=== PATIENT | female | born 1955 | race Caucasian/White ===

== ENCOUNTER 2024-07-15 15:55 | Emergency (ER) | payer MEDICARE, OTHER, SELFPAY ==
--- NOTE | 2024-07-15 16:03 | ECG_ITS ---
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
[2024-07-15 16:04] VITALS: BP 128/88; PULSE 90; TEMP 36.7; O2SAT 100; BMI 19.1
--- NOTE | 2024-07-15 16:05 | CT_ITS ---
[address] [address] Patient Name: CAIN COELLO MRN: [id number] date: 1955 Sex: F Assigned Patient Location: ER Current Patient Location: ER Accession/Order Number: [id number] Exam Date: 07/15/2024 16:21 Report Date: 07/15/2024 17:41 At the request of: GUMARO STANLEY Procedure: CT abdomen pelvis wo con EXAM: CT abdomen pelvis wo con HISTORY: left flank pain stone protocol COMPARISON: CT scan 12/10/2014. TECHNIQUE: CT abdomen pelvis without contrast. Axial scans with reformatted coronal sagittal images. Individualized radiation dose reduction used for this exam. FINDINGS: Lower chest: Lung bases clear, no acute process lower chest. ABDOMEN: Kidneys/urinary tract: Punctate left renal calcic case lower pole other smaller calculi seen previously not well visualized. No definite hydronephrosis ureteral calculus. No perirenal fluid or stranding. Right kidney ureter unremarkable. Fluid-filled bladder with a 2.5 mCi case along the posterior right bladder wall new from previous. Could be a calcification passed from either ureter. Pelvic ureters are unremarkable. Noncontrast liver, adrenal glands, pancreas, spleen unremarkable. No ascites or free fluid. No adenopathy. Normal size aorta. Normal-appearing fluid-filled gallbladder. Graft no bowel dilatation ileus or obstruction. Moderate to large amount gas and stool throughout colon. Appendix not clearly visualized but no pericecal fluid or inflammation. Pelvis: No mass or adenopathy or free fluid. Calcification along the posterior right bladder wall not seen previously. MUSCULOSKELETAL: No suspicious bone lesion. Degenerative changes. IMPRESSION: 1. No definite left ureteral calculus or hydronephrosis. Punctate calculus lower pole left kidney others possible small calculi. Right kidney ureter unremarkable. 2. Calcification along the posterior right bladder wall could reflect a recently passed calculus. This is new from previous. 3. No acute process elsewhere lower chest abdomen or pelvis. Electronically authenticated by: JUAN ORTIZ Date: 07/15/2024 17:41
--- NOTE | 2024-07-15 16:05 | ED_ITS ---
HPI HPI - General Adult General Chief complaint: Urogenital-Female Stated complaint: abd pain Time Seen by Provider: 07/15/24 15:56 History of Present Illness HPI narrative: 68-year-old female remote history of breast cancer presents to the ER with concerns of abrupt onset left flank pain. Patient reports moderate to severe pain in the left flank radiating to her lower abdomen. She reports a past history of kidney stones and previously saw urology at [facility] many years ago. She has not had a kidney stone in some time. Patient notes nausea, sharp pain. Denies fevers or chills. Patient states she was working in her yard raking leaves when symptoms came on shortly after using the restroom. She denies dysuria. Patient appears uncomfortable holding the left flank. Location: Reports abdomen Radiation: Reports back and abdomen Quality: Reports aching and sharp Pain Consistency: Reports constant Associated symptoms: Denies rash Related Data Home Medications ?Medication ?Instructions ?Recorded ?Confirmed amitriptyline/baclofen/gabappentin 07/15/24 lidocaine cetirizine 10 mg tablet (24Hour 10 mg PO DAILY PRN allergy symptoms 07/15/24 07/15/24 Allergy) cholecalciferol (vit D3) 137.5 mcg 1 tab PO DAILY 07/15/24 07/15/24 (5,500 unit)-vit K2 200 mcg tablet losartan 50 mg tablet mg 07/15/24 tamoxifen 10 mg tablet mg 07/15/24 timolol maleate 0.5 % eye drops drp ophthalmic (eye) 07/15/24 triamcinolone acetonide 55 mcg 1 spray intranasal DAILY 07/15/24 07/15/24 nasal spray aerosol (24 Hour Nasal Allergy) zoledronic acid 5 mg/100 mL in ea IV .yearly 07/15/24 mannitol 5 %-water intravenous piggybck (Reclast) Previous Rx's ?Medication ?Instructions ?Recorded cephalexin 500 mg capsule 500 mg PO BID 5 days #10 caps 07/15/24 ibuprofen 600 mg tablet 600 mg PO TID PRN pain #30 tabs 07/15/24 ondansetron HCl 4 mg tablet 4 mg PO Q6H PRN nausea and 07/15/24 vomiting #12 tabs tamsulosin 0.4 mg capsule (Flomax) 0.4 mg PO DAILY #5 caps 07/15/24 Allergies Allergy/AdvReac Type Severity Reaction Status Date / Time acetaminophen (From Ultracet) Allergy Nausea Verified 07/15/24 16:04 amlodipine Allergy swelling Verified 07/15/24 16:04 hydromorphone (From Dilaudid) Allergy Vomiting Verified 07/15/24 16:04 nabumetone Allergy Hives Verified 07/15/24 16:04 tramadol (From Ultracet) Allergy Nausea Verified 07/15/24 16:04 lisinopril AdvReac edema Verified 07/15/24 16:04 tylenol with codeine Allergy Hives Uncoded 07/15/24 16:04 Opioid HPI Opioid Management Most Recent Opioid Data: Last Pain Scale 10 07/15/24 16:30 07/15/24 Last ED Pain Assessment 07/15/24 17:10 Last MAR Pain Assessment 07/15/24 16:30 Review of Systems ROS Constitutional Denies: fever or chills Eyes Denies: change in vision Ears, nose, mouth, and throat Denies: throat pain or neck pain Cardiovascular Denies: chest pain or palpitations Respiratory Denies: shortness of breath Gastrointestinal Reports: abdominal pain (left flankl), nausea and vomiting; Denies: diarrhea PFSH PFSH Social History Little interest or pleasure in doing things: not at all Feeling down, depressed, or hopeless: not at all Exam Narrative Exam Narrative: Nurses notes and vital signs reviewed and patient is not hypoxic. General: The patient appears well, but Moderate discomfort left flank pain. Skin: Warm, dry, no pallor noted. no evidence of rash. Head: Normocephalic, atraumatic Neck: Supple, trachea mid-line, no tenderness, no lymphadenopathy Eye: Pupils are equal, round and reactive to light, EOMI Ears, Nose, Mouth, and Throat: external exam unremarkable Cardiovascular: Regular Rate and Rhythm Respiratory: Patient is in no distress, no accessory muscle use, lungs are clear to auscultation, no wheezing, rales or rhonchi. Chest Wall: no tenderness Back: non-tender,mild left CVA tenderness Musculoskeletal: normal ROM, no tenderness, no swelling GI: Normal bowel sounds, no tenderness to palpation, no masses appreciated. No rebound, guarding, or rigidity noted. Neurological: A&O x4 Psychiatric: Cooperative Constitutional Vital Signs, click to edit/add: Last Vital Signs Temp 98.1 F 07/15/24 16:04 Pulse 84 07/15/24 17:32 Resp 18 07/15/24 16:04 BP 129/65 07/15/24 17:32 Pulse Ox 98 07/15/24 17:32 O2 Del Method Room Air 07/15/24 16:04 Course Vital Signs Vital signs: Vital Signs Temperature 98.1 F 07/15/24 16:04 Pulse Rate 90 07/15/24 16:04 Respiratory Rate 18 07/15/24 16:04 Blood Pressure 128/88 07/15/24 16:04 Pulse Oximetry 100 07/15/24 16:04 Oxygen Delivery Method Room Air 07/15/24 16:04 Temperature 98.1 F 07/15/24 16:04 Pulse Rate 84 07/15/24 17:32 Respiratory Rate 18 07/15/24 16:04 Blood Pressure 129/65 07/15/24 17:32 Pulse Oximetry 98 07/15/24 17:32 Oxygen Delivery Method Room Air 07/15/24 16:04 Medical Decision Making [facility] Narrative Medical decision making narrative: Patient presents with acute onset left flank pain remote history of kidney stones. Initially medicated with Zofran and Toradol. Patient noted system pain, given 2 mg IV morphine. Patient reported feeling much more comfortable. She declined the need for additional pain medication. We discussed her CT results showing a punctate stone in the left kidney and possible calcification posterior bladder wall, shortly after this she did provide her urine sample and a suspected callus was noted in the sample. Given it has been quite some years since her previous kidney stones Stone analysis. Patient would like to follow- up with local urology, she is given providers in the area. We discussed medication including Zofran and Motrin. She will be sent home with 2 Fox but we suspect that her stone has passed, she is aware that she still has 1 that is small and that her kidney. Urinalysis concerning for infection, will treat with Keflex pending urine culture The patient is to followup with primary care physician in next 2-3 days or to return to the emergency department should any of the signs or symptoms worsen or new symptoms develop. Patient had questions answered. The patient agrees with the following Diagnosis and Treatment plan and the patient will be discharged home. Lab Data Lab results reviewed: Yes I reviewed the patient's lab results Labs: Lab Results 07/15/24 07/15/24 Range/Units 16:10 17:45 WBC 5.8 (4.0-11.0) 10^3/uL RBC 3.69 L (4.20-5.40) 10^6/uL Hgb 12.3 (12.0-16.0) g/dL Hct 36.3 (36.0-48.0) % MCV 98.4 (81.0-99.0) fL MCH 33.3 (26.7-34.0) pg MCHC 33.9 (29.9-35.2) g/dL RDW 14.4 (11.0-15.0) % Plt Count 172 (150-450) 10^3/uL MPV 10.4 (9.5-13.5) fL Neut % (Auto) 43.7 (43.0-75.0) % Lymph % (Auto) 49.6 (20.5-60.0) % [place] % (Auto) 5.7 (1.7-12.0) % Eos % (Auto) 0.3 L (0.9-7.0) % Baso % (Auto) 0.5 (0.2-2.0) % Neut # (Auto) 2.6 (1.4-6.5) 10^3/uL Lymph # (Auto) 2.9 (1.2-3.8) 10^3/uL [place] # (Auto) 0.3 (0.3-0.8) 10^3/uL Eos # (Auto) 0.0 (0.0-0.7) 10^3/uL Baso # (Auto) 0.0 (0.0-0.1) 10^3/uL Abs Immat Gran (auto) 0.01 (0.00-0.03) 10^3/uL Imm/Tot Granulo (auto) 0.2 (0.0-0.5) % Sodium 141 (136-145) mmol/L Potassium 4.0 (3.5-5.1) mmol/L Chloride 104 (98-107) mmol/L Carbon Dioxide 24.4 (21.0-32.0) mmol/L Anion Gap 16.6 BUN 16.0 (7.0-18.0) mg/dL Creatinine 0.81 (0.55-1.02) mg/dL Est GFR ( Amer) >60 (>=60 mL/min/1.73m^2) Est GFR (Non-Af Amer) >60 (>=60 mL/min/1.73m^2) BUN/Creatinine Ratio 19.8 Glucose 104 (74-106) mg/dL Calcium 9.3 (8.5-10.1) mg/dL Total Bilirubin 0.4 (0.2-1.0) mg/dL AST 32 (15-37) U/L ALT 28 (14-59) U/L Alkaline Phosphatase 64 (46-116) U/L Troponin I High Sens 6.5 (4.0-51.3) pg/mL Total Protein 6.7 (6.4-8.2) g/dL Albumin 3.3 L (3.4-5.0) g/dL Globulin 3.4 g/dL Albumin/Globulin Ratio 1.0 Lipase 76.0 (16.0-77.0) U/L Urine Color Lt. yellow (YELLOW) Urine Clarity Clear (CLEAR) Urine pH 8.5 (5.0-9.0) Ur Specific [place] 1.015 (1.005-1.025) Urine Protein Negative (NEG/TRACE) mg/dL Urine Glucose (UA) Negative (NEGATIVE) mg/dL Urine Ketones Trace A (NEGATIVE) mg/dL Urine Occult Blood Negative (NEGATIVE) Urine Nitrite Negative (NEGATIVE) Urine Bilirubin Negative (NEGATIVE) Urine Urobilinogen 0.2 (0.2-1.0) EU/dL Ur Leukocyte Esterase Small A (NEGATIVE) Urine RBC 0-2 (0-2) #/HPF Urine WBC 5-10 A (NONE SEEN) #/HPF Ur Squamous Epith Cells Few A (NONE/RARE) #/LPF Urine Crystals None seen (None Seen) #/HPF Urine Bacteria Large A (NONE SEEN) #/HPF Urine Casts None seen (NONE SEEN) #/LPF Urine Mucus Trace A (NONE SEEN) Ur Culture Indicated? Yes ECG Data Attestation: I personally reviewed and interpreted this ECG as follows: Interpretation: EKG interpretation: Emergency Department physician interpretation, normal sinus rhythm 80 , no ectopy, no ST segment elevation, normal axis. Discharge Plan Discharge Chief Complaint: Urogenital-Female Clinical Impression: Kidney stone on left side, Acute left flank pain, Urinary tract infection Patient Disposition: Home, Self-Care Condition: Good Prescriptions / Home Meds: New ondansetron HCl 4 mg tablet 4 mg PO Q6H PRN (Reason: nausea and vomiting) Qty: 12 0RF ibuprofen 600 mg tablet 600 mg PO TID PRN (Reason: pain) Qty: 30 0RF tamsulosin [Flomax] 0.4 mg capsule 0.4 mg PO DAILY Qty: 5 0RF cephalexin 500 mg capsule 500 mg PO BID 5 Days Qty: 10 0RF No Action losartan 50 mg tablet tamoxifen 10 mg tablet timolol maleate 0.5 % drops OPHTHALMIC (EYE) zoledronic [id number] [Reclast] 5 mg/100 mL piggyback IV .yearly cetirizine [24Hour Allergy] 10 mg tablet 10 mg PO DAILY PRN (Reason: allergy symptoms) triamcinolone acetonide [24 Hour Nasal Allergy] 55 mcg aerosol,spray 1 spray intranasal DAILY Rx Instructions: administer into each nostril vitamin D3-vitamin K2 137.5-200 mcg tablet 1 tab PO DAILY amitriptyline/baclofen/gabappentin lidocaine cream Print Language: Martiniquais Instructions: Kidney Stones (ED), Flank Pain (ED) Additional Instructions: return to ER if symptoms worsen or new symptoms develop. drink plenty of fluids. ( stone analysis pending, can review with PCP/ Urology) Referrals: VIOLET GRAY [Primary Care Provider] - 1 week Harinder Carolina MD [Physician] - 1 week Sobeida Orozco MD [Physician] - As needed
[2024-07-15] MEDS: TAMSULOSIN HCL 0.4 MG CAPSULE PO (16:15)
[2024-07-15] MEDS: ONDANSETRON 4 MG RAPDIS TABLET PO (16:15)
[2024-07-15] MEDS: KETOROLAC TROMETHAMINE 30 MG/ML VIAL IVP (16:16)
[2024-07-15 16:24] LABS: Basophils Percent Auto 0.5 % (0.2-2.0); Eosinophils Percent Auto 0.3 % (0.9-7.0); Hematocrit 36.3 % (36.0-48.0); Hemoglobin 12.3 g/dL (12.0-16.0); Immature Granulocytes Abs Auto 0.01 10^3/uL (0.00-0.03); Immature Granulocytes Pct Auto 0.2 % (0.0-0.5); Lymphocytes Absolute Auto 2.9 10^3/uL (1.2-3.8); Lymphocytes Percent Auto 49.6 % (20.5-60.0); Mean Corpuscular HGB Conc 33.9 g/dL (29.9-35.2); Mean Corpuscular Hemoglobin 33.3 pg (26.7-34.0); Mean Corpuscular Volume 98.4 fL (81.0-99.0); Mean Platelet Volume 10.4 fL (9.5-13.5); Monocytes Absolute Auto 0.3 10^3/uL (0.3-0.8); Monocytes Percent Auto 5.7 % (1.7-12.0); Neutrophils Absolute Auto 2.6 10^3/uL (1.4-6.5); Neutrophils Percent Auto 43.7 % (43.0-75.0); Platelet Count 172 10^3/uL (150-450); Red Blood Count 3.69 10^6/uL (4.20-5.40); Red Cell Distribution Width 14.4 % (11.0-15.0); White Blood Count 5.8 10^3/uL (4.0-11.0)
[2024-07-15] MEDS: MORPHINE SULFATE 2 MG/ML SYRINGE IV (16:30)
[2024-07-15 16:38] LABS: Anion Gap 16.6
[2024-07-15 16:41] LABS: Alanine Aminotransferase 28 U/L (14-59); Albumin Level 3.3 g/dL (3.4-5.0); Alkaline Phosphatase 64 U/L (46-116); Aspartate Amino Transferase 32 U/L (15-37); BUN Creatinine Ratio 19.8; Bilirubin Total 0.4 mg/dL (0.2-1.0); Calcium 9.3 mg/dL (8.5-10.1); Carbon Dioxide 24.4 mmol/L (21.0-32.0); Chloride 104 mmol/L (98-107); Estimated GFR (African America >60 (>=60 mL/min/1.73m^2); Estimated GFR (Non-African Ame >60 (>=60 mL/min/1.73m^2); Globulin 3.4 g/dL; Glucose 104 mg/dL (74-106); Sodium 141 mmol/L (136-145); Total Protein 6.7 g/dL (6.4-8.2); Troponin I High Sensitivity 6.5 pg/mL (4.0-51.3)
[2024-07-15 17:32] VITALS: BP 129/65; PULSE 84; O2SAT 98
[2024-07-15] MEDS: HYDROCODONE/ACET 5-325 MG TABLET 2 TAB PO (18:09)
[2024-07-15 18:10] LABS: Bilirubin Urine NEGATIVE (NEGATIVE); Blood Urine NEGATIVE (NEGATIVE); Clarity Urine CLEAR (CLEAR); Color Urine LT. YELLOW (YELLOW); Glucose Urine UA NEGATIVE (NEGATIVE); Ketones Urine TRACE mg/dL (NEGATIVE); Leukocyte Esterase Urine SMALL (NEGATIVE); Nitrite Urine NEGATIVE (NEGATIVE); Protein Urine NEGATIVE (NEG/TRACE); Specific Gravity Urine 1.015 (1.005-1.025); Urobilinogen Urine 0.2 EU/dL (0.2-1.0); pH Urine 8.5 (5.0-9.0)
[2024-07-15] MEDS: ONDANSETRON 4 MG RAPDIS TABLET SL (18:10)
[2024-07-15 18:12] LABS: Urine Microscopic Indicated YES
[2024-07-15 18:26] LABS: Bacteria Urine LARGE #/HPF (NONE SEEN); Cast Seen? NONE SEEN #/LPF (NONE SEEN); Crystals Seen? None Seen #/HPF (None Seen); Mucus Urine TRACE (NONE SEEN); RBC Urine 0-2 #/HPF (0-2); Squamous Epithelial Cell Urine FEW #/LPF (NONE/RARE); Urine Culture Indicated YES
[2024-07-15] MEDS: PROMETHAZINE HCL 12.5 MG in 0.9 % SODIUM CHLORIDE 50 ML 202 MG IV (18:50)
[2024-07-15] MEDS: CEPHALEXIN 500 MG CAPSULE PO (19:42)
[2024-07-15 19:55] VITALS: BP 90/38; PULSE 94; O2SAT 100
== END 2024-07-15 19:58 | disposition home or self-care (01) ==
PROVIDERS: Personal Emergency Response Attendant; Emergency Provider Emergency Medicine; PCP Family Medicine
DX: N20.0 Calculus of kidney (principal); N39.0 Urinary tract infection, site not specified; R10.9 Unspecified abdominal pain; Z85.3 Personal history of malignant neoplasm of breast; Z87.442 Personal history of urinary calculi
CPT/HCPCS: 36415; 74176; 80053; 81001; 82365; 83690; 84484; 85025; 87086; 93005; 96374; 96375; 99285; J1885; J2250; J2270; Q0162